=== PATIENT | male | born 1970 | race Caucasian/White ===

== ENCOUNTER 2019-12-05 07:55 | Observation (INO) | payer SELFPAY ==
[2019-12-05] VITALS (12 sets, daily range): BP systolic 116–145; BP diastolic 70–84; PULSE 44–66; RESP 16–20; TEMP 36.3–37.1; O2SAT 96–98; BMI 29.2
--- NOTE | ~2019-12-05 | CT_ITS ---
EXAMINATION: CT abdomen pelvis wo con DATE: 12/05/2019 08:45 INDICATION: Right flank pain, back pain for 14 hours TECHNIQUE: Computed tomography (CT) of the abdomen and pelvis was performed without intravenous contr ast. Automated exposure control and iterative reconstruction technique were employed. Exam dose: 674 .64 mGy-cm total exam DLP. COMPARISON: None. FINDINGS: The lung bases are clear of infiltrate or consolidation. Normal heart size. No pericardial or pleural effusion. Status post cholecystectomy. No hepatic, splenic, pancreatic, adrenal or renal space-occupying mass lesion is evident. Normal caliber of the abdominal aorta. No intraperitoneal or retroperitoneal or pelvic mass lesion or adenopathy or ascites. There is mild right perinephric stranding and mild right hydroureteronephrosis secondary to a right u reterovesical junction approximately 3 mm calculus. There is an approximately 2 mm nonobstructing lower pole right renal calculus. There is an approximat alexia 2 mm lower pole nonobstructing left renal calculus. Small fat-containing left inguinal hernia. Small fat-containing umbilical hernia. The appendix is not visualized. Diverticulosis of left and right colon; no CT evidence of diverticuli tis. No bowel obstruction, bowel wall thickening, pneumatosis or intraperitoneal free air is detected . The urinary bladder is not well distended and appears essentially unremarkable. Prostate gland appear s normal size. Chronic bilateral L5 pars interarticularis defects with slight grade 1 anterolisthesis of L5-S1. IMPRESSION: 3 mm right ureterovesical junction calculus with mild right hydroureteronephrosis Bilateral nonobstructive nephrolithiasis Status post cholecystectomy Diverticulosis of the colon Bilateral L5 pars interarticularis defects with minimal grade 1 anterolisthesis Reviewed, dictated and finalized at [facility]. Reviewed, dictated and finalized at [facility]. IMPRESSION: 3 mm right ureterovesical junction calculus with mild right hydrou reteronephrosis Bilateral nonobstructive nephrolithiasis Status post cholecystectomy Diverticulosis of the colon Bilateral L5 pars interarticularis defects with minimal grade 1 anterolisthesis
--- NOTE | 2019-12-05 08:10 | ECG_ITS ---
Measurements Intervals [place] Rate: 42 P: 71 AL: 145 QRS: 95 QRSD: 105 T: 62 QT: 457 QTc: 382 Interpretive Statements SINUS BRADYCARDIA RIGHT AXIS DEVIATION CONSIDER INFERIOR INFARCT, AGE INDETERMINATE BASELINE ARTIFACT- I, II, III, AVR, AVL, AVF, V1-V2 ABNORMAL ECG Electronically Signed On 12-05-2019 8:32:43 CDT by Ko Chin D.O.
[2019-12-05] MEDS: KETOROLAC 30 MG/ML VIAL (*BKC) IV PUSH ×2 (08:19→16:34)
[2019-12-05] MEDS: ONDANSETRON INJ 4 MG/2 ML VIAL IV PUSH (08:20)
[2019-12-05] MEDS: SODIUM CHLORIDE 0.9% IV 1,000 ML 999 ML IV CONT (08:20)
[2019-12-05 08:21] LABS: Hematocrit 46.3 % (40.0-54.0); Mean Corpuscular HGB Conc 34.6 g/dL (32.0-36.0); Mean Corpuscular Hemoglobin 32.3 pg (27.0-31.0); Mean Corpuscular Volume 93.5 fL (78.0-102.0); Platelet Count Result 231 K/mm3 (150-420); Red Blood Count 4.95 M/mm3 (4.70-6.10); Red Cell Distribution Width 11.6 % (11.6-14.4)
[2019-12-05 08:25] LABS: White Blood Count 20.5 K/mm3 (4.8-10.8)
--- NOTE | 2019-12-05 08:39 | ED.ABDPAIN ---
HPI - Abdominal Pain General Chief Complaint: Urogenital-Male Stated Complaint: back pain History of Present Illness HPI narrative: this is a 49-year-old gentleman presents with some right flank pain that radiates into his right groin that started earlier this morning with episodes of nausea and vomiting with some no chest pain no shortness of breath no diarrhea or constipation. Patient has no significant past medical history, patient is a smoker no alcohol use. Patient had symptoms started around 5 in the morning and had taken a Vicodin that he had at home with minimal relief there is no hematuria no dysuria. MD elicited complaint: abdominal pain and flank pain Onset (ago): hour(s) Pain Consistency: constant Location: RLQ and R flank Severity: moderate Pain scale (0-10): 8 Quality: aching Radiation: R flank Migration to: suprapubic Exacerbating factors: vomiting Relieving factors: nothing Associated symptoms: nausea, vomiting and chills Treatments prior to arrival: prescription analgesics Related Data Home Medications Medication Instructions Recorded Confirmed No Home Medications 12/05/19 12/05/19 Allergies Allergy/AdvReac Type Severity Reaction Status Date / Time No Known Allergies Allergy Verified 12/05/19 08:27 Review of Systems Review of Systems: All systems reviewed & are unremarkable except as noted in HPI and below PMFSH Past Medical History Medical History Patient denies medical problems Exam Const: General: no acute distress and alert Nutritional Appearance: well nourished Orientation/consciousness: patient oriented x3 HENMT: Head: normal to inspection Eyes: Conjunctivae: conjunctivae normal Pupils: Equal, round and reactive pupils present Neck: Neck: normal visual inspection, no lymphadenopathy and no meningeal signs Chest: Chest palpation & inspection: normal inspection of the chest Resp: Effort & Inspection: normal respiratory effort Auscultation: clear to auscultation bilaterally Cardio: Rate: bradycardic GI: GI Palp: Yes Tenderness to palpation present (GI) : General: Yes CVA tenderness Urinary Catheter: Urinary Catheter: patent and draining Back/Spine/Pelvis: Back: CVA tenderness Skin: General skin exam: normal color Rashes: no rashes Neuro: General: patient oriented x3, moves all extremities and no meningeal signs Extrem: General: normal to inspection and no pedal edema Psych: Appearance: grossly normal Mental Status: mental status grossly normal Course Course Emergency Course: reassessment of patient, patient pain is improved with some IV Toradol and nausea has subsided with IV Zofran. The patient was informed of his CT [place] [phone] let him know that we were going to admit him under observation. MDM - Abdominal Pain Lab Data Attestation: I reviewed the patient's lab results. Result diagrams: 12/05/19 08:16 12/05/19 08:16 Labs: Lab Results 12/05/19 12/05/19 12/05/19 Range/Units 08:10 08:16 08:16 WBC 20.5 H* (4.8-10.8) K/mm3 RBC 4.95 (4.70-6.10) M/mm3 Hgb 16.0 (14.0-18.0) g/dL Hct 46.3 (40.0-54.0) % MCV 93.5 (78.0-102.0) fL MCH 32.3 H (27.0-31.0) pg MCHC 34.6 (32.0-36.0) g/dL RDW 11.6 (11.6-14.4) % Plt Count 231 (150-420) K/mm3 MPV 10.0 (8.7-11.0) fl Sodium Pending Potassium Pending Chloride Pending Carbon Dioxide Pending Anion Gap Pending BUN Pending Creatinine Pending Estim Creat Clear Calc Pending Estimated GFR Pending Glucose Pending Calculated Osmolality Pending Calcium Pending Total Bilirubin Pending AST Pending ALT Pending Alkaline Phosphatase Pending Troponin I Pending Total Protein Pending Albumin Pending ECG Data EKG #1: ECG completion date: 12/05/19
[2019-12-05 08:42] LABS: Alanine Aminotransferase 32 U/L (16-63); Albumin Level 3.9 g/dL (3.4-5.0); Alkaline Phosphatase 72 U/L (46-116); Anion Gap 13.1 mmol/L (7-16); Aspartate Amino Transferase 23 U/L (15-37); Bilirubin,Total 0.7 mg/dL (0.00-1.00); Blood Urea Nitrogen 16 mg/dL (7-18); Calcium 9.4 mg/dL (8.5-10.1); Carbon Dioxide 25 mmol/L (21-32); Chloride 104 mmol/L (98-108); Estimated Glomerular Filt Rate 45; Glucose 136 mg/dL (70-99); Osmolality Calculated 289 mOsm/kg (285-295); Potassium 4.1 mmol/L (3.5-5.1); Sodium 138 mmol/L (136-145); Total Protein 7.5 g/dL (6.4-8.2)
[2019-12-05 08:43] LABS: Troponin I < 0.02 ng/mL (0.00-0.056)
[2019-12-05 09:23] LABS: Add Urine Microscopic? YES; Appearance Urine Cloudy (Clear); Bilirubin Urine Negative (Negative); Blood Urine 2+ (Negative); Color Urine Yellow (Yellow); Glucose Urine UA Negative (Negative); Ketones Urine Trace (Negative); Leukocyte Esterase Ur Negative (Negative); Nitrate Urine Negative (Negative); Protein Urine Negative (Negative); Specific Grav Ur >= 1.030 (1.010-1.020); Urobilinogen Urine 0.2 mg/dL (0.2-1.0)
[2019-12-05 09:29] LABS: WBC Urine 0-3 /hpf (0-3)
[2019-12-05 09:30] LABS: Amorphous Sediment Urine Heavy; Bacteria Urine 2+ /hpf; Squamous Epithelial Cell Urine None seen /hpf (Few)
--- NOTE | 2019-12-05 09:36 | PC.NURSE ---
call to saida , case management. pt ok to admit.
--- NOTE | 2019-12-05 10:05 | PC.NURSE ---
Patient brought to floor per wheelchair, admitted from ED. Patient able to ambulate from wheelchair to bed. Oriented to room, call light within reach
[2019-12-05] MEDS: SODIUM CHLORIDE 0.9% IV 1,000 ML 100 ML IV CONT ×2 (10:34→21:02)
--- NOTE | 2019-12-05 11:36 | PM.IMHP ---
H&P: HPI History of Present Illness Chief complaint: back pain Narrative: Rena Joyce is a 49 year old male Presented to [facility] ED with right flank pain it radiates to his right groin and back pain. patient's past medical history smoker. According to patient this morning he started experiencing unbearable pain in his right lower quadrant. Patient did take a Vicodin with no relief this is when he decided to come into the ED. Patient vital signs are 141/80, 50, 20, 98.7 98% on room air. Patient's wbc's elevated at 20.5, creatinine slightly elevated at 1.63, UA with blood and bacteria. CT of the abdomen indicated 3 mm right stone with right hydroureteronephrosis.. patient's EKG did indicate sinus Raul with a heart rate of 42. while in the ED patient received antibiotic Rocephin, IV fluid and pain medication. this assessment patient admits that his pain is controlled with the pain medication he continues to have right lower quadrant tenderness Patient able to tolerate all meals , slept well and ambulate at baseline. Patient denies SOB, CP, palpitation, extremity numbness, lightheadness, dizziness, diarrhea, chills or fever. patient will probably discharge tomorrow once his pain is controlled. Patient did complain of constipation noted that he has not had a bowel movement in 2 days. Review of Systems Review of Systems: Narrative: CONSTITUTIONAL :No weight loss, fever, chills, weakness or fatigue.: HEENT: Eyes: No diplopia or blurred vision. ENT: No earache, sore throat or runny nose. CARDIOVASCULAR: No pressure, squeezing, strangling, tightness, heaviness or aching about the chest, neck, axilla or epigastrium. RESPIRATORY: No cough, shortness of breath, PND or orthopnea. GASTROINTESTINAL: complains of constipation and right lower quadrant tenderness No nausea, vomiting or diarrhea. GENITOURINARY: No dysuria, frequency or urgency. MUSCULOSKELETAL: No muscle, back pain, joint pain or stiffness. SKIN: No change in skin, hair or nails. NEUROLOGIC: No paresthesias, fasciculations, seizures or weakness. PSYCHIATRIC: No disorder of thought or mood. ENDOCRINE: No heat or cold intolerance, polyuria or polydipsia. HEMATOLOGICAL: No easy bruising or bleeding. PMFSH Past Medical History Medical History Patient denies medical problems Social History Social History Smoking packs per day: 1.5 Smoking cigarettes per day: 30.0 Years smoked: 30 Smoking pack-years: 45.00 Smoking status: Current every day smoker Tobacco type: cigarettes Alcohol intake: never Substance use: never Spiritual care concerns: No Meds Home Medications and Allergies Home Medications Medication Instructions Recorded Confirmed Type No Home Medications 12/05/19 12/05/19 History Allergies Allergy/AdvReac Type Severity Reaction Status Date / Time No Known Allergies Allergy Verified 12/05/19 08:27 Vital Signs Vital Signs - 24 hr 12/05/19 08:00 12/05/19 09:21 12/05/19 09:37 Temperature 97.3 F L 98.7 F Pulse Rate 55 L 54 L 50 L Respiratory Rate 20 20 20 Blood Pressure 145/83 H 141/80 H Pulse Oximetry 98 96 98 Exam Narrative: Exam Narrative: General: A well-developed, well-nourished male sitting up in bed no acute distress. HEENT: Normocephalic, atraumatic. PERRL, EOMI. Sclerae anicteric. Oral mucosa moist. Oropharynx clear. Neck: Supple. Respiratory: denies shortness of breath Cardiovascular: bradycardia Gastrointestinal: Abdomen is soft, right upper quadrant tenderness, and nondistended with positive bowel sounds. No organomegaly. Skin: Warm, dry, and slightly pale.. No rash or lesions on limited exam. Extremities: No cyanosis, clubbing, or edema. Radial and pedal pulses intact. Neurological: Alert. Cranial nerves 2-12 are grossly intact. No gross focal deficits to casual conversation. Psy
[2019-12-05] MEDS: MORPHINE SULFATE 2 MG/ML INJ IV PUSH (14:14)
[2019-12-06] VITALS: PULSE 48
[2019-12-06 03:10] VITALS: PULSE 53
[2019-12-06 04:00] VITALS: BP 107/63; PULSE 55; PULSE 59; RESP 18; TEMP 36.5; O2SAT 97
[2019-12-06 05:43] LABS: Basophils Absolute Auto 0.02 K/mm3 (0.00-0.10); Basophils Percent Auto 0.2 % (0.0-1.0); Eosinophils Absolute Auto 0.11 K/mm3 (0.02-0.50); Eosinophils Percent Auto 1.1 % (1.0-6.0); Hematocrit 37.5 % (40.0-54.0); Hemoglobin 12.8 g/dL (14.0-18.0); Immature Granulocyte Absolute 0.05 K/mm3 (0.00-0.00); Immature Granulocyte Percent A 0.5 % (0.0-0.0); Lymphocytes Absolute Auto 2.05 K/mm3 (1.10-4.50); Lymphocytes Percent Auto 20.9 % (18.0-42.0); Mean Corpuscular HGB Conc 34.1 g/dL (32.0-36.0); Mean Corpuscular Hemoglobin 32.7 pg (27.0-31.0); Mean Corpuscular Volume 95.7 fL (78.0-102.0); Mean Platelet Volume 10.2 fl (8.7-11.0); Monocytes Absolute Auto 0.79 K/mm3 (0.10-0.90); Neutrophils Absolute Auto 6.8 K/mm3 (1.7-7.2); Neutrophils Percent Auto 69.3 % (50.0-70.0); Platelet Count Result 153 K/mm3 (150-420); Red Blood Count 3.92 M/mm3 (4.70-6.10); Red Cell Distribution Width 11.9 % (11.6-14.4); White Blood Count 9.8 K/mm3 (4.8-10.8)
[2019-12-06 06:00] LABS: Alanine Aminotransferase 24 U/L (16-63); Albumin Level 2.6 g/dL (3.4-5.0); Alkaline Phosphatase 52 U/L (46-116); Aspartate Amino Transferase 18 U/L (15-37); Bilirubin,Total 0.5 mg/dL (0.00-1.00); Blood Urea Nitrogen 14 mg/dL (7-18); Carbon Dioxide 27 mmol/L (21-32); Chloride 108 mmol/L (98-108); Estimated CRCL calculation 60 ml/min; Estimated Glomerular Filt Rate 53; Glucose 105 mg/dL (70-99); Osmolality Calculated 292 mOsm/kg (285-295); Sodium 141 mmol/L (136-145); Total Protein 5.2 g/dL (6.4-8.2)
[2019-12-06 07:15] VITALS: BP 117/69; PULSE 51; PULSE 59; RESP 18; TEMP 36.6; O2SAT 97
--- NOTE | 2019-12-06 07:20 | ECG_ITS ---
Measurements Intervals [place] Rate: 41 P: 61 MT: 162 QRS: 97 QRSD: 102 T: 5 QT: 427 QTc: 353 Interpretive Statements SINUS BRADYCARDIA WITH SINUS ARRHYTHMIA RIGHT AXIS DEVIATION INCOMPLETE RIGHT BUNDLE BRANCH BLOCK MINIMAL Q WAVES- LATERAL LEADS CONSIDER INFERIOR INFARCT, AGE INDETERMINATE ABNORMAL ECG Electronically Signed On 12-06-2019 8:04:48 CDT by Ko Chin D.O.
[2019-12-06 08:04] LABS: Thyroid Stimulating Hormone 1.34 uIU/mL (0.36-3.74)
--- NOTE | 2019-12-06 08:17 | P.DS_ITS ---
DS: Admitting Diagnosis Admitting Diagnosis Admitting Diagnosis: Urinary tract infection, site not specified DS: Discharge Diagnosis Discharge Diagnosis (1) Urinary tract infection: Qualifiers: Hematuria presence: without hematuria Urinary tract infection type: site unspecified Qualified Code(s): N39.0 - Urinary tract infection, site not specified Code(s): N39.0 - Urinary tract infection, site not specified Status: Acute Assessment and Plan: * UA indicates blood and bacteria * Discharge home with Cipro 500 mg b.i.d. for 7 days * UA culture pending (2) Nephrolithiasis: Code(s): N20.0 - Calculus of kidney Status: Acute Assessment and Plan: * CT of the abdomen indicates3 mm right ureterovesical junction calculus with mild right hydroureteronephrosis * continue amlodipine and Flomax to assist with dilation of the urethra to reading assistant with passing kidney stone * continue to strain urine * continue pain medication * lactic acid within normal limits (3) Bradycardia on ECG: Code(s): R00.1 - Bradycardia, unspecified Status: Acute Assessment and Plan: * EKG in the ED indicates sinus Raul with a heart rate in the 40's * improving currently between 50 and 55 * patient does not have a cardiac history * patient is asymptomatic he denies any near syncope, dizziness, lightheadedness, fatigue, shortness of breath, chest pain or memory problems * patient does not currently have any insurance but he has been instructed to follow-up with a service loss control consultant for follow-up tests * this meant patient has normal heart rate * troponins negative (4) Smoker: Code(s): F17.200 - Nicotine dependence, unspecified, uncomplicated Status: Acute Assessment and Plan: * educated on smoking cessation * patient refused nicotine patch (5) Acute kidney injury: Code(s): N17.9 - Acute kidney failure, unspecified Status: Acute Assessment and Plan: * possibly secondary to kidney stone * creatinine 1.63/ BUN 16 GRF 45 improving creatinine 1.40 and GFR of 53 * encouraged to continue fluid intake * electrolyte balanced (6) Elevated white blood cell count, unspecified: Code(s): D72.829 - Elevated white blood cell count, unspecified Status: Acute Assessment and Plan: * within normal limits today * secondary to UTI * treat underlying cause * WBC 20.5 * repeat CBC in the a.m. DS: Summary Time Spent with Patient Time attestation: Total time spent providing and/or coordinating discharge services: Exam Narrative: Exam Narrative: General: A well-developed, well-nourished male sitting up in bed no acute distress. HEENT: Normocephalic, atraumatic. PERRL, EOMI. Sclerae anicteric. Oral mucosa moist. Oropharynx clear. Neck: Supple. Respiratory: denies shortness of breath Cardiovascular: bradycardia Gastrointestinal: Abdomen is soft, right upper quadrant tenderness, and nondistended with positive bowel sounds. No organomegaly. Skin: Warm, dry, and slightly pale.. No rash or lesions on limited exam. Extremities: No cyanosis, clubbing, or edema. Radial and pedal pulses intact. Neurological: Alert. Cranial nerves 2-12 are grossly intact. No gross focal deficits to casual conversation. Psychiatric: Pleasant and cooperative with normal mood and affect. Judgment and insight intact. DS: Data Data Completed and Pending Labs on day of discharge: Labs from last 24 hours 12/06/19
--- NOTE | 2019-12-06 08:17 | PM.DS ---
DS: Admitting Diagnosis Admitting Diagnosis Admitting Diagnosis: Urinary tract infection, site not specified DS: Discharge Diagnosis Discharge Diagnosis (1) Urinary tract infection: Qualifiers: Hematuria presence: without hematuria Urinary tract infection type: site unspecified Qualified Code(s): N39.0 - Urinary tract infection, site not specified Code(s): N39.0 - Urinary tract infection, site not specified Status: Acute Assessment and Plan: UA indicates blood and bacteria Discharge home with Cipro 500 mg b.i.d. for 7 days UA culture pending (2) Nephrolithiasis: Code(s): N20.0 - Calculus of kidney Status: Acute Assessment and Plan: CT of the abdomen indicates3 mm right ureterovesical junction calculus with mild right hydroureteronephrosis continue amlodipine and Flomax to assist with dilation of the urethra to lead dental assistant with passing kidney stone continue to strain urine continue pain medication lactic acid within normal limits (3) Bradycardia on ECG: Code(s): R00.1 - Bradycardia, unspecified Status: Acute Assessment and Plan: EKG in the ED indicates sinus Raul with a heart rate in the 40's improving currently between 50 and 55 patient does not have a cardiac history patient is asymptomatic he denies any near syncope, dizziness, lightheadedness, fatigue, shortness of breath, chest pain or memory problems patient does not currently have any insurance but he has been instructed to follow-up with a house carpenter helper for follow-up tests this meant patient has normal heart rate troponins negative (4) Smoker: Code(s): F17.200 - Nicotine dependence, unspecified, uncomplicated Status: Acute Assessment and Plan: educated on smoking cessation patient refused nicotine patch (5) Acute kidney injury: Code(s): N17.9 - Acute kidney failure, unspecified Status: Acute Assessment and Plan: possibly secondary to kidney stone creatinine 1.63/ BUN 16 GRF 45 improving creatinine 1.40 and GFR of 53 encouraged to continue fluid intake electrolyte balanced (6) Elevated white blood cell count, unspecified: Code(s): D72.829 - Elevated white blood cell count, unspecified Status: Acute Assessment and Plan: within normal limits today secondary to UTI treat underlying cause WBC 20.5 repeat CBC in the a.m. DS: Summary Time Spent with Patient Time attestation: Total time spent providing and/or coordinating discharge services: Exam Narrative: Exam Narrative: General: A well-developed, well-nourished male sitting up in bed no acute distress. HEENT: Normocephalic, atraumatic. PERRL, EOMI. Sclerae anicteric. Oral mucosa moist. Oropharynx clear. Neck: Supple. Respiratory: denies shortness of breath Cardiovascular: bradycardia Gastrointestinal: Abdomen is soft, right upper quadrant tenderness, and nondistended with positive bowel sounds. No organomegaly. Skin: Warm, dry, and slightly pale.. No rash or lesions on limited exam. Extremities: No cyanosis, clubbing, or edema. Radial and pedal pulses intact. Neurological: Alert. Cranial nerves 2-12 are grossly intact. No gross focal deficits to casual conversation. Psychiatric: Pleasant and cooperative with normal mood and affect. Judgment and insight intact. DS: Data Data Completed and Pending Labs on day of discharge: Labs from last 24 hours 12/06/19 12/06/19 12/06/19 05:22 05:22 05:00 WBC 9.8 RBC 3.92 L Hgb 12.8 L Hct 37.5 L MCV 95.7 MCH 32.7 H MCHC 34.1 RDW 11.9 Plt Count 153 MPV 10.2 Immature Gran % (Auto) 0.5 H Neut % (Auto) 69.3 Lymph % (Auto) 20.9 [place] % (Auto) 8.0 Eos % (Auto) 1.1 Baso % (Auto) 0.2 Lymph # (Auto) 2.05 [place] # (Auto) 0.79 Eos # (Auto) 0.11 Baso # (Auto) 0.02 Abs Immat Gran (auto) 0.05 H Absolute Neuts (
[2019-12-06] MEDS: amLODIPine BESYLATE 5 MG TABLET PO (09:07)
[2019-12-06] MEDS: TAMSULOSIN HCL 0.4 MG CAPSULE PO (09:07)
[2019-12-06] MEDS: CIPROFLOXACIN 500 MG TAB PO (09:34)
--- NOTE | 2019-12-06 12:18 | PC.NURSE ---
Discharge instructions reviewed, no questions
--- NOTE | 2019-12-06 12:29 | PC.NURSE ---
Discharge to home via wheel chair, personal items returned to patient, denies pain upon discharge, voiding without difficulty
== END 2019-12-06 12:30 | disposition home or self-care (01) ==
LOC: CHSED 09:50 → CHS2ND 09:51
PROVIDERS: Nurse Practitioner; Admitting Provider Emergency Medicine; Emergency Provider Emergency Medicine; Visit Provider Emergency Medicine
DX: N13.2 Hydronephrosis with renal and ureteral calculous obstruction (principal); R00.1 Bradycardia, unspecified; K57.90 Diverticulosis of intestine, part unspecified, without perforation or abscess without bleeding; F17.200 Nicotine dependence, unspecified, uncomplicated
CPT/HCPCS: 36415; 74176; 80053; 81001; 83605; 83735; 84443; 84484; 85025; 85027; 87040; 93005; 96360; 96361; 96365; 96375; 96376; 99284; 99285; A9270; G0378; J0696; J1885; J2270; J2405; J7030

== ENCOUNTER 2019-12-24 13:45 | Outpatient (CLI) | payer SELFPAY ==
--- NOTE | ~2019-12-24 | US_ITS ---
EXAMINATION: US renal BI DATE: 12/24/2019 14:51 INDICATION: Calculus of kidney TECHNIQUE: Multiple grayscale and Doppler ultrasound images of the kidneys were obtained. COMPARISON: CT, 12/05/2019 FINDINGS: The right kidney measures 9.6 x 5.7 x 5 cm. The left kidney measures 9.9 x 4.8 x 4.9 cm. Th e kidneys demonstrate normal parenchymal echogenicity. There is no hydronephrosis. The bladder is nor mal. IMPRESSION: 1. Normal kidneys without hydronephrosis. Reviewed, dictated and finalized at [facility].
== END 2019-12-24 13:46 | disposition home or self-care (01) ==
LOC: CHSIMG 13:47
PROVIDERS: PCP Nurse Practitioner Family; Visit Provider Nurse Practitioner Family
DX: N20.0 Calculus of kidney (principal)
CPT/HCPCS: 76775

== ENCOUNTER 2021-09-13 19:43 | Emergency (ER) | payer OTHER, SELFPAY ==
--- NOTE | ~2021-09-13 | XR_ITS ---
EXAMINATION: XR chest 2V DATE: 09/13/2021 20:18 INDICATION: Shortness of breath and cough TECHNIQUE: PA and lateral views of the chest are obtained. COMPARISON: 10/16/2013 FINDINGS: The lungs are free of acute opacities. There is no pleural effusion or pneumothorax. The ca rdiomediastinal silhouette is normal. There is mild thoracic spondylosis. Surgical clips in the upper abdomen on the lateral view are likely from prior cholecystectomy. IMPRESSION: 1. No acute cardiopulmonary abnormality. Reviewed, dictated and finalized at [facility].
[2021-09-13 19:50] VITALS: BP 150/103; PULSE 85; RESP 20; TEMP 36.1; O2SAT 98
--- NOTE | 2021-09-13 20:11 | ED.URI ---
HPI - URI/Sore Throat General Chief Complaint: Upper Respiratory Infection Stated Complaint: sore throat, runny nose, cough, fever, body aches Time Seen by Provider: 09/13/21 20:11 Source: patient Mode of arrival: ambulatory Limitations: no limitations History of Present Illness HPI Narrative: This is a 51-year-old gentleman with history of tobacco use, presents with some cough with some productive yellow sputum with some mild shortness of breath with no audible wheezes currently no fever chills no chest pain no chest pressure does have some nasal discharge and nasal congestion. MD elicited complaint: cough and nasal congestion Onset (ago): day(s) Consistency: constant Severity: moderate Description of mucous: yellow Exacerbating factors: nothing Related Data Allergies Allergy/AdvReac Type Severity Reaction Status Date / Time No Known Allergies Allergy Verified 09/13/21 20:40 Review of Systems Review of Systems: All systems reviewed & are unremarkable except as noted in HPI and below PMFSH Past Medical History Medical History Bradycardia on ECG Elevated white blood cell count, unspecified History of broken leg 16 yrs old Smoker Surgical History Surgical History Hx of appendectomy Hx of cholecystectomy Family History Family History Father Hypertension Bladder cancer Mother Healthy adult Social History Social History Smoking packs per day: 1.5 Smoking cigarettes per day: 30.0 Years smoked: 30 Smoking pack-years: 45.00 Smoking status: Current every day smoker Tobacco type: cigarettes Alcohol intake: never Substance use: never Spiritual care concerns: No Exam Const: General: no acute distress and alert Orientation/consciousness: patient oriented x3 HENMT: Head: normal to inspection Eyes: Conjunctivae: conjunctivae normal Pupils: Equal, round and reactive pupils present Neck: Neck: normal visual inspection, no lymphadenopathy and no meningeal signs Chest: Chest palpation & inspection: normal inspection of the chest Resp: Effort & Inspection: normal respiratory effort Cardio: Rate: regular rate Rhythm: regular rhythm GI: GI Palp: Yes Soft to palpation Percussion: Yes normal to percussion Urinary Catheter: Urinary Catheter: patent and draining Skin: General skin exam: normal color Rashes: no rashes Neuro: General: patient oriented x3, moves all extremities, no meningeal signs and no focal motor deficits Extrem: General: normal to inspection and no pedal edema Psych: Mental Status: mental status grossly normal Affect: normal affect Course Course Emergency Course: Labs, x-ray performed and rapid strep/influenza/ COVID performed and reviewed with patient. Critical Care Time Critical Care Time Critical Care Time: No Discharge Plan Discharge Clinical Impression: Bronchitis Patient Disposition: Home, Self-Care Condition: Stable Instructions: Antibiotic Form, Acute Bronchitis (ED) Additional Instructions: Take medicine as prescribed and follow-up with primary care physician if symptoms persist or worsen. Prescriptions: New azithromycin [Zithromax Z-Rolando] 250 mg tablet See Rx Instructions .ROUTE .COMPLEX Qty: 6 RF: 0 No Action hydrocodone-acetaminophen [[place]] 10-325 mg tablet 1 tablet PO Q6H PRN (Reason: pain) Qty: 10 RF: 0 ciprofloxacin HCl [Cipro] 500 mg tablet 500 mg PO Q12H 7 Days Qty: 14 RF: 0 tamsulosin 0.4 mg capsule 0.4 mg PO QAM Qty: 14 RF: 0 diclofenac sodium 50 mg tablet,delayed release (DR/EC) 50 mg PO TID PRN (Reason: pain) Qty: 45 RF: 0 Follow-up/Referrals: UNKNOWN,DOCTOR [Primary Care Provider] - Time of Disposition: 20:58
[2021-09-13 20:15] LABS: Basophils Absolute Auto 0.04 K/mm3 (0.00-0.10); Basophils Percent Auto 0.5 % (0.0-1.0); Eosinophils Absolute Auto 0.26 K/mm3 (0.02-0.50); Eosinophils Percent Auto 3.4 % (1.0-6.0); Hematocrit 49.2 % (40.0-54.0); Hemoglobin 16.8 g/dL (14.0-18.0); Immature Granulocyte Absolute 0.03 K/mm3 (0.00-0.00); Immature Granulocyte Percent A 0.4 % (0.0-0.0); Lymphocytes Absolute Auto 1.92 K/mm3 (1.10-4.50); Lymphocytes Percent Auto 25.2 % (18.0-42.0); Mean Corpuscular HGB Conc 34.1 g/dL (32.0-36.0); Mean Corpuscular Hemoglobin 32.4 pg (27.0-31.0); Mean Corpuscular Volume 94.8 fL (78.0-102.0); Mean Platelet Volume 9.8 fl (8.7-11.0); Monocytes Absolute Auto 0.73 K/mm3 (0.10-0.90); Monocytes Percent Auto 9.6 % (2.0-11.0); Neutrophils Absolute Auto 4.6 K/mm3 (1.7-7.2); Neutrophils Percent Auto 60.9 % (50.0-70.0); Platelet Count Result 210 K/mm3 (150-420); Red Blood Count 5.19 M/mm3 (4.70-6.10); Red Cell Distribution Width 11.7 % (11.6-14.4); White Blood Count 7.6 K/mm3 (4.8-10.8)
[2021-09-13 20:37] LABS: Influenza Control Valid (Valid); SARS-CoV-2 Ag Negative (Negative)
[2021-09-13 20:42] LABS: Alanine Aminotransferase 24 U/L (16-63); Albumin Level 3.6 g/dL (3.4-5.0); Alkaline Phosphatase 73 U/L (46-116); Anion Gap 9 mmol/L (8-16); Aspartate Amino Transferase 15 U/L (15-37); Bilirubin,Total 0.4 mg/dL (0.00-1.00); Blood Urea Nitrogen 11 mg/dL (7-18); Carbon Dioxide 24 mmol/L (21-32); Chloride 105 mmol/L (98-108); Estimated CRCL calculation 75 ml/min; Estimated Glomerular Filt Rate > 60; Glucose 115 mg/dL (70-99); Osmolality Calculated 286 mOsm/kg (285-295); Potassium 3.9 mmol/L (3.5-5.1); Sodium 138 mmol/L (136-145); Total Protein 7.3 g/dL (6.4-8.2)
[2021-09-13] MEDS: cefTRIAXone 1 GM VIAL IM (21:08)
[2021-09-13] MEDS: LIDOCAINE HCL 1% LOCAL INJ 20 ML VIAL (21:08)
[2021-09-13 21:10] VITALS: BP 144/102; PULSE 79; RESP 20; O2SAT 97
[2021-09-13 21:24] VITALS: TEMP 36.4
== END 2021-09-13 21:24 | disposition home or self-care (01) ==
PROVIDERS: Emergency Provider Emergency Medicine
DX: J40 Bronchitis, not specified as acute or chronic (principal); Z20.822 Contact with and (suspected) exposure to COVID-19
CPT/HCPCS: 71046; 80053; 85025; 87081; 87426; 87804; 87880; 96372; 99283; C9803; J0696

== ENCOUNTER 2024-02-22 10:23 | Outpatient (CLI) | payer OTHER, SELFPAY ==
--- NOTE | ~2024-02-22 | XR_ITS ---
XR cervical spine 4-5V Ordering provider: Angela Rollins NP History: . M54.2 - Cervicalgia . Comparison: None. FINDINGS: VERTEBRAL BODIES: Postoperative changes at the level of C5-C6. Otherwise, Normal height and alignment . No visible fracture or subluxation. The dens is intact. DISK SPACES: Well maintained. Disc spacer at the level of C5-C6. PARASPINOUS SOFT TISSUES: No prevertebral soft tissue swelling. IMPRESSION: No acute osseous abnormality cervical spine. Reviewed, dictated and finalized at location [facility].
--- NOTE | ~2024-02-22 | XR_ITS ---
Lumbosacral Spine: AP and lateral views Clinical History: Pain Findings: The normal lordotic curve is maintained. The vertebral bodies and posterior elements are i ntact. The intervertebral disc spaces are preserved. There is mild facet arthropathy of the lumbar s pine. The sacroiliac joints are normally outlined. Impression: Mild facet arthropathy at the lower lumbar spine. Reviewed, dictated and finalized at [facility]. Impression: Mild facet arthropathy at the lower lumbar spine.
== END 2024-02-22 10:24 | disposition home or self-care (01) ==
LOC: CHSIMG 10:24
PROVIDERS: PCP Nurse Practitioner Family; Visit Provider Nurse Practitioner Family
DX: M54.50 Low back pain, unspecified (principal); M54.2 Cervicalgia; M12.88 Other specific arthropathies, not elsewhere classified, other specified site
CPT/HCPCS: 72050; 72110

== ENCOUNTER 2024-02-27 07:49 | Outpatient (RCR) | payer OTHER, SELFPAY ==
--- NOTE | 2024-02-27 09:16 | OPREHPOC ---
Outpatient Therapy Plan of Care This is a Multidisciplinary Plan of Care that may contain components documented by all disciplines (PT, OT, and ST.) PT Problem 1 PT Problem #1 Knowledge Deficit PT Goal 1 Goal / Goal Update 1. independent and compliant with HEP Target Visit 6 PT Problem 2 PT Problem #2 Pain PT Goal 1 Goal / Goal Update 1. decrease pain at worst in the neck to 3/10 or less 2. decrease pain at worst in the back to 2/10 or less Target Visit 12 PT Problem 3 PT Problem #3 Impaired Range of Motion PT Goal 1 Goal / Goal Update 1. improve active cervical rotation to 70 degrees or better 2. 40 degrees or better active lumbar side bending Target Visit 12 PT Problem 4 PT Problem #4 Impaired Strength PT Goal 1 Goal / Goal Update 1. improve bilateral triceps strength to 5/5 2. bilateral detacher strength to display 90lbs or greater detacher force bilaterally 3. bilateral hip strength to display 5/5 overall 4. patient to display 4-/5 or better neck and back core strength Target Visit 12 PT Problem 5 PT Problem #5 Impaired Functional Mobil PT Goal 1 Goal / Goal Update 1. patient to display improve shoulder, trunk, and LE mechanics with squat to safely lift and carry items for work and home. 2. oswestry to display 30% or less functional deficits. 3. patient to safely lift and carry 40lbs from floor to waist and for 400ft with good posture x5 bouts without increased pain 4. patient to obtain an abdominal binder/lifting support belt. Target Visit 12
--- NOTE | 2024-02-27 09:16 | PTOPEVAL1 ---
Assessment and note entered by [employer], PT Evaluation Information Assessment Status Evaluation ICD-10 Condition Codes (PT) Cervicalgia M54.2,Pain in low back M54.50 Onset 02/03/24 Subjective Information patient reports he has had pain in the back and neck for about 3-4 weeks. he reports he has had pain for longer, but it has been getting worse for this amount of time. he reports he experienced no injury. he reports the neck hurts all the time, but reports at times the lower back will hurt worse. he reports the neck will bother him in the neck and down into the shoulder blades and arms. he reports the pain now feels like it radiates from below the fusion. he reports he does have pain down the arms to the finger tips with numbness. he reports most of this numbness is related to the ring and small fingers on both hands. he reports his neck pain is increased with movement. he reports he is a [employer] gi[employer], and this will increase his neck and back pain. he reports the lower back is increased with walking, standing, bending, lifting. he reports he did recently have an xray. he reports he does get pain and numbness down the legs into the feet. Reported Pain Level Pain Score 4,2: Self Report Assessment PT Clinical Summary mr. welch is a 54 yo man who presents to skilled PT services for evaluation and treatment of neck and back pain. he presents today with deficits in arom, UE strength, core strength, functional movement performance, and quality of life. he displays deficits in the neck that are indicative of a progressed cervical DDD below the level of his previous fusions. he also displays core weakness/DDD of the lumbar spine. he has a job that requires a significant amount of standing, walking, lifting, and carrying that exacerbate his symptoms. he would benefit from continued skilled PT to address his objective/functional deficits and return to his prior level functional activity performance/quality of life. Plan of Care Interventions Electrical Stimulation,Hot Pack/Cold Pack,Manual Therapy,Neuro Re-education,Patient/Caregiver Educati,Therapeutic Activities,Therapeutic Exercise PT Services Indicated Yes Treatment Frequency and 3x weekly for 12 visits Duration These treatments will address the objective and functional deficits as defined above. The patient will be advanced safely and appropriately in order for the patient to progress towards his/her prior level of function. Additional exercises will be introduced and as well as a comprehensive home exercise program upon discharge, if needed, ?to ensure carryover of functional gains achieved in the clinic. This treatment plan has been reviewed and agreement upon by the patient.
--- NOTE | 2024-03-21 07:53 | PTOPDC ---
Assessment and note entered by [facility] Evaluation Information Assessment Status Progress ICD-10 Condition Codes (PT) Cervicalgia M54.2,Pain in low back M54.50 Onset 02/03/24 Subjective Information Pt. reports that he has returned to work. He states that he has returned to work. He states that he is sleeping a little better, but still gets an occasional interruption of sleep. He states that he has been able to modify his work to avoid heavy lifting. He reports that he will continue with his HEP and is ready for discharge. Reported Pain Level Pain Score 2,3: Self Report Assessment PT Clinical Summary Pt. has demonstrated improvements in mobility and functional movement. He is educated regarding body mechanics. He has returned to work duties and has been able to make modifications that allow for improved safety. At this time he is encouraged to continue with his HEP and will be discharged from our care. Plan of Care PT Services Indicated No
== END 2024-03-21 17:17 | disposition home or self-care (01) ==
LOC: CHSPT 07:49
PROVIDERS: PCP Nurse Practitioner Family; Visit Provider Nurse Practitioner Family
DX: M54.50 Low back pain, unspecified (principal); M54.2 Cervicalgia
CPT/HCPCS: 97014; 97110; 97140; 97161; 97530; G0283

== ENCOUNTER 2024-10-12 07:27 | Outpatient (CLI) | payer OTHER, SELFPAY ==
--- NOTE | ~2024-10-12 | MR_ITS ---
MRI of the thoracic spine Clinical History: Back pain Technique: Axial T2-weighted and gradient images, and sagittal T1-weighted, T2-weighted, and STIR emilee ges were acquired. Findings: No acute fracture or subluxation seen. Vertebral bodies maintain normal height and alignmen t. No bone marrow signal abnormality seen. There is multilevel mild degenerative disc narrowing/change. No disc bulge or herniation seen at any thoracic level. No spinal canal stenosis or cord compression identified. Neural foramina are preserve d throughout the thoracic spine. No abnormal signal seen in the spinal cord. Paravertebral soft tissues are unremarkable. Impression: Minimal degenerative change, as above. Reviewed, dictated and finalized at location . Impression: Minimal degenerative change, as above.
--- NOTE | ~2024-10-12 | MR_ITS ---
MRI of the lumbar spine Clinical History: Back pain Technique: Axial T2-weighted images, and sagittal T1-weighted, T2-weighted, and T2 fat-sat images wer e acquired. Findings: There is no fracture or subluxation of lumbar spine. Vertebral bodies maintain normal heigh t and alignment. No bone marrow signal abnormality seen. No significant disc bulge or herniation seen at any lumbar level. There is minimal disc desiccation a t L4-L5. No spinal canal stenosis or neural foraminal narrowing seen at any lumbar level. There are m ild to moderate facet joint degenerative changes throughout the lumbar spine. Paravertebral soft tissues are unremarkable. Impression: Facet arthropathy, as above. Reviewed, dictated and finalized at location M. Impression: Facet arthropathy, as above.
== END 2024-10-12 07:28 | disposition home or self-care (01) ==
LOC: CHSIMG 07:28
PROVIDERS: PCP Nurse Practitioner Family; Visit Provider Nurse Practitioner Family
DX: M54.50 Low back pain, unspecified (principal); M12.88 Other specific arthropathies, not elsewhere classified, other specified site
CPT/HCPCS: 72146; 72148

== ENCOUNTER 2024-12-21 20:35 | Emergency (ER) | payer OTHER, SELFPAY ==
[2024-12-21 20:35] VITALS: BP 129/87; PULSE 92; RESP 18; TEMP 36.4; O2SAT 97
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
[2024-12-21] MEDS: HYDROmorphone HCL INJ (*CRX) 2 MG/ML VIAL 1 MG IM (21:31)
[2024-12-21] MEDS: ONDANSETRON HCL ODT 4 MG TABLET PO (21:31)
[2024-12-21 22:10] VITALS: BP 127/85; PULSE 89; RESP 16; O2SAT 98
== END 2024-12-21 22:10 | disposition home or self-care (01) ==
PROVIDERS: Emergency Provider Internal Medicine Critical Care Medicine; PCP Nurse Practitioner Family
DX: M54.12 Radiculopathy, cervical region (principal); F17.210 Nicotine dependence, cigarettes, uncomplicated
CPT/HCPCS: 96372; 99283; A9270; J1171

== ENCOUNTER 2025-03-21 14:47 | Outpatient (CLI) | payer OTHER, SELFPAY ==
[2025-03-21 15:04] LABS: Hematocrit 49.6 % (40.0-54.0); Hemoglobin 17.0 g/dL (14.0-18.0); Immature Granulocyte Percent A 0.5 % (0.0-0.0); Lymphocytes Absolute Auto 2.49 K/mm3 (1.10-4.50); Mean Corpuscular HGB Conc 34.3 g/dL (32-36); Mean Corpuscular Hemoglobin 31.5 pg (27.0-31.0); Mean Corpuscular Volume 92.0 fL (78.0-102.0); Nucleated Red Blood Cells Absolute Auto 0.00 K/mm3 (0.00-0.00); Nucleated Red Blood Cells Perc 0.0 % (0-0.0); Platelet Count Result 270 K/mm3 (150-420); Red Blood Count 5.39 M/mm3 (4.70-6.10); White Blood Count 11.1 K/mm3 (4.8-10.8)
[2025-03-21 15:18] LABS: Hemoglobin A1C 5.5 % (<5.7)
[2025-03-21 15:21] LABS: Alanine Aminotransferase 28 U/L (6-50); Albumin Level 4.5 g/dL (3.5-5.1); Alkaline Phosphatase 72 U/L (38-126); Anion Gap 7 mmol/L (4-12); Aspartate Amino Transferase 28 U/L (17-59); Bilirubin,Total 0.7 mg/dL (0.2-1.3); Blood Urea Nitrogen 4 mg/dL (9-20); Calcium 9.7 mg/dL (8.4-10.2); Carbon Dioxide 30 mmol/L (22-30); Chloride 107 mmol/L (98-107); Cholesterol 227 mg/dL (0-200); Estimated Glomerular Filt Rate > 60; Glucose 101 mg/dL (65-110); HDL Direct 37 mg/dL; Osmolality Calculated 294 mOsm/kg (285-295); Potassium 4.4 mmol/L (3.4-5.0); Sodium 144 mmol/L (137-145); Total Protein 7.1 g/dL (6.3-8.2); Triglycerides 465 mg/dL (<150)
[2025-03-21 15:51] LABS: Thyroid Stimulating Hormone Reflex 1.610 uIU/mL (0.465-4.68)
== END 2025-03-21 14:48 | disposition home or self-care (01) ==
LOC: CHSLAB 14:48
PROVIDERS: PCP Nurse Practitioner Family; Visit Provider Nurse Practitioner Family
DX: Z00.00 Encounter for general adult medical examination without abnormal findings (principal)
CPT/HCPCS: 36415; 80053; 80061; 83036; 84443; 85025